=== PATIENT | female | born 1990 | race Caucasian/White ===

== ENCOUNTER 2016-09-06 11:59 | Emergency (ER) | payer MEDICAID ==
[2016-09-06] MEDS ORDERED: IBUPROFEN 800 MG TABLET PO STA (15:38)
[2016-09-06] MEDS ORDERED: IBUPROFEN 800 MG TABLET PO ONE (15:40)
== END 2016-09-06 15:44 | disposition home or self-care (01) ==
DX: M79.601 Pain in right arm (principal); W23.0XXA Caught, crushed, jammed, or pinched between moving objects, initial encounter; E28.2 Polycystic ovarian syndrome; J45.909 Unspecified asthma, uncomplicated; F17.200 Nicotine dependence, unspecified, uncomplicated; R03.0 Elevated blood-pressure reading, without diagnosis of hypertension
CPT/HCPCS: 73090; 81025; 99283; 99284; A9270

== ENCOUNTER 2017-05-09 15:41 | Outpatient (CLI) | payer MEDICAID ==
--- NOTE | 2017-05-10 01:27 | XRAY Report ---
EXAM: LUMBOSACRAL SPINE RADIOGRAPHY EXAM DATE: 05/09/2017 04:21 PM. CLINICAL HISTORY: LUMBAGO. COMPARISONS: None. TECHNIQUE: 3 views. FINDINGS: Alignment: Normal. No spondylolisthesis or scoliosis. Bones: No fractures or bone lesions. Degenerative changes: Mild L4-L5 and L5-S1 disk height loss. Soft Tissues: Normal. The visualized bowel gas pattern is normal. IMPRESSION: 1. No acute abnormality seen in the lumbar spine. 2. Mild L4-L5 and L5-S1 disk height loss. [facility] Referring Provider Line: [phone] SITE ID: [id number]
== END 2017-05-09 15:42 | disposition home or self-care (01) ==
LOC: DI.N 15:41
PROVIDERS: ATTEND Family Medicine
DX: M51.36 Other intervertebral disc degeneration, lumbar region (principal)
CPT/HCPCS: 72100

== ENCOUNTER 2017-10-09 08:00 | Outpatient (CLI) | payer MEDICAID ==
[2017-10-09 19:09] LABS: BASOPHILS % (AUTO) 0.6 %; EOSINOPHILS # (AUTO) 0.1 10^3/uL (0.0-0.7); EOSINOPHILS % (AUTO) 2.3 %; HGB - HEMOGLOBIN 12.9 g/dL (12.0-16.0); LYMPHOCYTES # (AUTO) 2.1 10^3/uL (1.5-3.5); MEAN CORPUSCULAR HEMOGLOBIN 30.1 pg (27.0-31.0); MEAN CORPUSCULAR HGB CONC 33.4 g/dL (32.0-36.0); MEAN CORPUSCULAR VOLUME 90.3 fL (81.0-99.0); MEAN PLATELET VOLUME 10.2 fL (7.9-10.8); MONOCYTES # (AUTO) 0.3 10^3/uL (0.0-1.0); MONOCYTES % (AUTO) 4.6 %; NEUTROPHILS # (AUTO) 3.4 10^3/uL (1.5-6.6); NEUTROPHILS % (AUTO) 57.5 %; PLT - PLATELET COUNT 246 10^3/uL (130-450); RED BLOOD COUNT 4.28 10^6/uL (4.20-5.40); WHITE BLOOD COUNT 5.9 x10^3/uL (4.8-10.8)
[2017-10-09 19:19] LABS: ALBUMIN 4.4 g/dL (3.2-5.5); ALBUMIN/GLOBULIN RATIO 1.3 (1.0-2.2); ALKALINE PHOSPHATASE 81 IU/L (42-121); ALT ALANINE AMINOTRANSFERASE 39 IU/L (10-60); AST ASPARTATE AMINOTRANSFERASE 45 IU/L (10-42); BUN - BLOOD UREA NITROGEN 11 mg/dL (6-20); CALCIUM 9.3 mg/dL (8.5-10.3); CARBON DIOXIDE - CO2 23 mmol/L (21-32); CHLORIDE 106 mmol/L (101-111); CHOL/HDL RATIO 6.6 (<4.4); CHOLESTEROL 265 mg/dL; CREATININE 0.7 mg/dL (0.4-1.0); GFR - MDRD 101 (>89); GLUCOSE 100 mg/dL (70-100); HDL CHOLESTEROL 40 mg/dL; LDL CHOLESTEROL,CALCULATED 196 mg/dL; LDL/HDL RATIO 4.9 (<4.4); SODIUM 137 mmol/L (135-145); TOTAL PROTEIN 7.9 g/dL (6.7-8.2); URIC ACID 6.8 mg/dL (2.6-7.2); VLDL CHOLESTEROL 29 mg/dL
[2017-10-09 20:39] LABS: RHEUMATOID FACTOR NEGATIVE (Negative)
[2017-10-11 13:31] LABS: ANA SCREEN NEGATIVE (NEGATIVE)
== END 2017-10-09 08:01 | disposition home or self-care (01) ==
LOC: LAB.N 08:00
PROVIDERS: ATTEND Family Medicine
DX: M19.90 Unspecified osteoarthritis, unspecified site (principal); Z83.2 Family history of diseases of the blood and blood-forming organs and certain disorders involving the immune mechanism; E66.9 Obesity, unspecified
CPT/HCPCS: 36415; 80053; 80061; 83721; 84443; 84550; 85025; 85651; 86038; 86140; 86200; 86430

== ENCOUNTER 2018-04-15 23:35 | Emergency (ER) | payer MEDICAID ==
--- NOTE | 2018-04-15 23:52 | ED Physician Documentation ---
PD HPI UPPER EXT INJURY - Stated complaint Stated Complaint: L ARM PX - Chief complaint Chief Complaint: General - History obtained from History obtained from: Patient - History of Present Illness Location: Left, Forearm, Wrist Type of injury: Blunt / blow Where injury occurred: Home Timing - onset: How many hours ago (1) Timing - details: Abrupt onset Pain level now: 7 Improved by: Rest Worsened by: Moving, Palpating Associated symptoms: Swelling. 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 Psych: ADD/ADHD Other Past Medical History: POC - Past Surgical History Past Surgical History: Yes - Present Medications Home Medications: Ambulatory Orders Medication Instructions Recorded Confirmed Cetirizine [ZyrTEC] 04/15/18 04/15/18 Doxepin HCl 25 mg PO 04/15/18 Venlafaxine [Effexor] 04/15/18 04/15/18 Hydrocodone/Acetaminophen 1 - 2 each PO Q6HR PRN #14 tablet 04/16/18 [Hydrocodon-Acetaminophen 5-325] - Allergies Allergies/Adverse Reactions: Allergies Allergy/AdvReac Type Severity Reaction Status Date / Time prazosin [From Minipress] AdvReac Dizziness Verified 04/15/18 23:42 - Social History Does the pt smoke?: Yes Smoking Status: Former smoker Does the pt drink ETOH?: No Does the pt have substance abuse?: No - Immunizations Immunizations are current?: Yes - POLST Patient has POLST: No PD ED PE NORMAL - Vitals Vital signs reviewed: Yes - General General: Alert and oriented X 3, No acute distress, Well developed/nourished - Derm Derm: Normal color, Warm and dry - Neuro Neuro: No motor deficit, No sensory deficit PD ED PE EXPANDED - Extremities Extremities: Tenderness, Limited ROM, Swelling, Left forearm (distal forearm, dorsal surface) Results - Vitals Vitals: Vital Signs - 24 hr 04/16/18 01:03 Temperature 36.6 C Heart Rate 89 Respiratory 16 Rate Blood Pressure 136/74 H O2 Saturation 99 Oxygen O2 Source Room air - Rads (name of study) left FA xrays Radiology: Prelim report reviewed, See rad report PD MEDICAL DECISION MAKING - ED course Complexity details: reviewed results, re-evaluated patient, considered differential, d/w patient Departure - Departure Disposition: 01 Home, Self Care Clinical Impression: Left wrist sprain Condition: Good Instructions: ED Sling, ED Splint Care Fiberglass, ED Sprain Wrist Follow-Up: Davi Nicholson MD [Primary Care Provider] - (4-5 days if not improving) Prescriptions: Hydrocodone/Acetaminophen [Hydrocodon-Acetaminophen 5-325] 1 - 2 each PO Q6HR PRN #14 tablet PRN Reason: Pain Discharge Date/Time: 04/16/18 01:03
--- NOTE | 2018-04-16 00:41 | XRAY Report ---
Reason: Trauma Procedure Date: 04/16/2018 Accession Number: [id number] / [id number] Procedure: XR - Forearm LT CPT Code: FULL RESULT: EXAM: LEFT FOREARM RADIOGRAPHY EXAM DATE: 04/16/2018 12:03 AM. CLINICAL HISTORY: Pain after injury. COMPARISON: None. TECHNIQUE: 2 views. FINDINGS: Bones: No fracture seen. Joints: No dislocation. Joint spaces appear intact. Soft Tissues: Soft tissue swelling. IMPRESSION: 1. No acute osseous abnormality seen. [facility]
[2018-04-16] MEDS ORDERED: HYDROcod/ACET 5/325 Prepack 4 PO STA (00:46)
[2018-04-16 01:04] VITALS: BP 136/74
== END 2018-04-16 01:03 | disposition home or self-care (01) ==
LOC: ED 23:35
DX: Z87.891 Personal history of nicotine dependence (principal); S63.502A Unspecified sprain of left wrist, initial encounter; W22.09XA Striking against other stationary object, initial encounter; Y92.009 Unspecified place in unspecified non-institutional (private) residence as the place of occurrence of the external cause
CPT/HCPCS: 99283

== ENCOUNTER 2018-04-23 10:43 | Outpatient (CLI) | payer MEDICAID ==
--- NOTE | 2018-04-23 11:58 | XRAY Report ---
Reason: FOREARM PAIN, LEFT Procedure Date: 04/23/2018 Accession Number: [id number] / [id number] Procedure: XR - Forearm LT CPT Code: FULL RESULT: EXAM: LEFT FOREARM RADIOGRAPHY EXAM DATE: 04/23/2018 11:11 AM. CLINICAL HISTORY: Forearm pain, left. COMPARISON: FOREARM LT 04/16/2018 12:03 AM. TECHNIQUE: 2 views. FINDINGS: Bones: Normal. No fractures or bone lesions. Joints: Normal. No effusions or subluxations in the visualized wrist or elbow joints. Soft Tissues: Normal. No soft tissue swelling. IMPRESSION: No fracture or dislocation. [facility]
--- NOTE | 2018-04-23 11:58 | XRAY Report ---
Reason: FOREARM PAIN, LEFT, PAIN IN LEFT WRIST Procedure Date: 04/23/2018 Accession Number: [id number] / [id number] Procedure: XR - Wrist 3 View LT CPT Code: FULL RESULT: EXAM: LEFT WRIST RADIOGRAPHY EXAM DATE: 04/23/2018 11:11 AM. CLINICAL HISTORY: Forearm pain, left, pain in left wrist. COMPARISON: None. TECHNIQUE: 3 views. FINDINGS: Bones: Normal. No fractures or bone lesions. Joints: Normal. No subluxations. Soft Tissues: Normal. No soft tissue swelling. IMPRESSION: Normal wrist radiography. [facility]
== END 2018-04-23 10:44 | disposition home or self-care (01) ==
LOC: DI 10:43
PROVIDERS: ATTEND Family Medicine
DX: M79.632 Pain in left forearm (principal); M25.532 Pain in left wrist

== ENCOUNTER 2018-10-07 08:00 | Outpatient (CLI) | payer MEDICAID ==
[2018-10-07 19:45] LABS: HB2 TOTAL 14.1 g/dL; HEMOGLOBIN A1C 0.49 g/dL; HEMOGLOBIN A1C % 5.3 % (4.6-6.2)
[2018-10-07 20:27] LABS: CHOL/HDL RATIO 6.3 (<4.4); CHOLESTEROL 258 mg/dL; HDL CHOLESTEROL 41 mg/dL; LDL CHOLESTEROL,CALCULATED 177 mg/dL; LDL/HDL RATIO 4.3 (<4.4); VLDL CHOLESTEROL 40 mg/dL
== END 2018-10-07 23:59 | disposition home or self-care (01) ==
LOC: LAB.N 08:00
PROVIDERS: ATTEND Registered Nurse
DX: F33.9 Major depressive disorder, recurrent, unspecified (principal); Z79.899 Other long term (current) drug therapy
CPT/HCPCS: 36415; 80061; 83036; 83721

== ENCOUNTER 2019-01-16 11:00 | Emergency (ER) | payer MEDICAID ==
[2019-01-16 11:16] VITALS: BP 149/109
[2019-01-16] MEDS ORDERED: hydrOXYzine PAMOATE 25 MG CAPSULE PO STA (12:08)
[2019-01-16] MEDS ORDERED: predniSONE 20 MG TABLET PO STA (12:08)
--- NOTE | 2019-01-16 12:12 | ED Physician Documentation ---
PD HPI SKIN - Stated complaint Stated Complaint: RASH ON ARMS/NECK - Chief complaint Chief Complaint: Wound - History obtained from History obtained from: Patient - History of Present Illness Timing - onset: How many weeks ago (1) Timing - duration: Weeks (1) Timing - details: Gradual onset Pain level max: 5 Pain level now: 5 Location: Bodywide Quality / character: Itchy Improved by: Other (took benadry without relief) Worsened by (comment): COMMENT (nothing) Associated symptoms: No: Fever, Myalgias, Joint pain, Headache, Facial swelling, Dyspnea, Abd pain, N/V/D, Urinary sx Contributing factors: Unknown. 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 Psych: Depression, Anxiety, ADD/ADHD - Past Surgical History Past Surgical History: Yes - Present Medications Home Medications: Ambulatory Orders Medication Instructions Recorded Confirmed Cetirizine [ZyrTEC] 04/15/18 04/15/18 Doxepin HCl 25 mg PO 04/15/18 Venlafaxine [Effexor] 04/15/18 04/15/18 Hydrocodone/Acetaminophen 1 - 2 each PO Q6HR PRN #14 tablet 04/16/18 [Hydrocodon-Acetaminophen 5-325] hydrOXYzine HCl [Hydroxyzine HCl] 50 mg PO Q6H PRN #20 tablet 01/16/19 predniSONE [Deltasone] 10 mg PO [id number] #42 tab 01/16/19 - Allergies Allergies/Adverse Reactions: Allergies Allergy/AdvReac Type Severity Reaction Status Date / Time prazosin [From Minipress] AdvReac Dizziness Verified 04/15/18 23:42 - Social History Does the pt smoke?: No Smoking Status: Former smoker Does the pt drink ETOH?: Yes Does the pt have substance abuse?: No - Immunizations Immunizations are current?: Yes - POLST Patient has POLST: No PD ED PE NORMAL - Vitals Vital signs reviewed: Yes - General General: Alert and oriented X 3, No acute distress, Well developed/nourished - HEENT HEENT: Moist mucous membranes - Neck Neck: Supple, no meningeal sign - Cardiac Cardiac: RRR - Respiratory Respiratory: No respiratory distress, Clear bilaterally - Derm Derm: Warm and dry, Other (Diffuse macular exanthem over the face, upper arms and chest. Blanches easily. No vesicles or pustules.) - Neuro Neuro: Alert and oriented X 3 - Psych Psych: Normal mood, Normal affect Results - Vitals Vitals: Vital Signs - 24 hr 01/16/19 11:14 Temperature 36.8 C Heart Rate 84 Respiratory 18 Rate Blood Pressure 149/109 H O2 Saturation 97 Oxygen O2 Source Room air PD MEDICAL DECISION MAKING - ED course Complexity details: considered differential, d/w patient ED course: 28-year-old female with a rash of unclear etiology. Will trial on oral steroids and hydroxyzine. Patient counseled regarding signs and symptoms for which I believe and urgent re-evaluation would be necessary. Patient with good understanding of and agreement to plan and is comfortable going home at this time This document was made in part using voice recognition software. While efforts are made to proofread this document, sound alike and grammatical errors may occur. Departure - Departure Disposition: 01 Home, Self Care Clinical Impression: Dermatitis Condition: Good Instructions: ED Dermatitis Non Specific Rash Follow-Up: Henry Dahl PA-C [Primary Care Provider] - Within 1 week Prescriptions: hydrOXYzine HCl [Hydroxyzine HCl] 50 mg PO Q6H PRN #20 tablet PRN Reason: Itching predniSONE [Deltasone] 10 mg PO [id number] #42 tab Comments: The cause of your symptoms is unclear. Follow-up with your doctor for further care. Discharge Date/Time: 01/16/19 12:17
== END 2019-01-16 12:17 | disposition home or self-care (01) ==
LOC: ED 11:00
DX: L30.9 Dermatitis, unspecified (principal); Z87.891 Personal history of nicotine dependence
CPT/HCPCS: 99282; 99284; A9270; J7512

== ENCOUNTER 2020-01-07 10:20 | Outpatient (CLI) | payer MEDICAID | END 2020-01-07 10:21 | disposition home or self-care (01) | LOC: COV 10:20 | PROVIDERS: ATTEND Family Medicine | DX: R06.02 Shortness of breath (principal); Z20.828 Contact with and (suspected) exposure to other viral communicable diseases ==

== ENCOUNTER 2020-02-25 08:58 | Outpatient (CLI) | payer MEDICAID ==
[2020-02-25 13:09] LABS: BASOPHILS % (AUTO) 0.3 %; EOSINOPHILS # (AUTO) 0.1 10^3/uL (0.0-0.7); EOSINOPHILS % (AUTO) 2.3 %; HGB - HEMOGLOBIN 13.3 g/dL (12.0-16.0); LYMPHOCYTES # (AUTO) 2.4 10^3/uL (1.5-3.5); MEAN CORPUSCULAR HEMOGLOBIN 30.2 pg (27.0-31.0); MEAN CORPUSCULAR HGB CONC 32.4 g/dL (32.0-36.0); MEAN PLATELET VOLUME 12.8 fL (7.9-10.8); MONOCYTES # (AUTO) 0.4 10^3/uL (0.0-1.0); MONOCYTES % (AUTO) 5.8 %; NEUTROPHILS # (AUTO) 3.2 10^3/uL (1.5-6.6); NEUTROPHILS % (AUTO) 52.3 %; PLT - PLATELET COUNT 251 10^3/uL (130-450); RED BLOOD COUNT 4.41 10^6/uL (4.20-5.40); RED CELL DISTRIBUTION WIDTH 12.6 % (12.0-15.0); WHITE BLOOD COUNT 6.2 x10^3/uL (4.8-10.8)
[2020-02-25 13:17] LABS: HEMOGLOBIN A1c% 5.3 % (4.27-6.07)
[2020-02-25 13:52] LABS: HCG,QUALITATIVE BLOOD NEGATIVE
[2020-02-25 14:56] LABS: ALBUMIN 4.1 g/dL (3.2-5.5); ALBUMIN/GLOBULIN RATIO 1.6 (1.0-2.2); ALKALINE PHOSPHATASE 53 IU/L (42-121); ALT ALANINE AMINOTRANSFERASE 20 IU/L (10-60); AST ASPARTATE AMINOTRANSFERASE 20 IU/L (10-42); BILIRUBIN,TOTAL 0.6 mg/dL (0.2-1.0); BUN - BLOOD UREA NITROGEN 13 mg/dL (6-20); CALCIUM 9.5 mg/dL (8.5-10.3); CARBON DIOXIDE - CO2 26 mmol/L (21-32); CHLORIDE 103 mmol/L (101-111); CHOLESTEROL 189 mg/dL; CREATININE 0.9 mg/dL (0.4-1.0); GLUCOSE 94 mg/dL (70-100); HDL CHOLESTEROL 94 mg/dL; LDL CHOLESTEROL,CALCULATED 83 mg/dL; LDL/HDL RATIO 0.9 (<4.4); SODIUM 138 mmol/L (135-145); TOTAL PROTEIN 6.7 g/dL (6.7-8.2); VLDL CHOLESTEROL 12 mg/dL
== END 2020-02-25 23:59 | disposition home or self-care (01) ==
LOC: LAB.WCP 08:58
PROVIDERS: ATTEND Physician Assistant
DX: Z00.00 Encounter for general adult medical examination without abnormal findings (principal); E28.2 Polycystic ovarian syndrome
CPT/HCPCS: 36415; 80053; 80061; 83036; 83721; 84443; 84703; 85025

== ENCOUNTER 2020-03-15 08:40 | Outpatient (CLI) | payer MEDICAID ==
[2020-03-15 11:46] LABS: BASOPHILS % (AUTO) 0.4 %; EOSINOPHILS # (AUTO) 0.1 10^3/uL (0.0-0.7); EOSINOPHILS % (AUTO) 2.3 %; HGB - HEMOGLOBIN 9.7 g/dL (12.0-16.0); LYMPHOCYTES # (AUTO) 2.1 10^3/uL (1.5-3.5); MEAN CORPUSCULAR HEMOGLOBIN 30.7 pg (27.0-31.0); MEAN CORPUSCULAR HGB CONC 31.8 g/dL (32.0-36.0); MEAN CORPUSCULAR VOLUME 96.5 fL (81.0-99.0); MEAN PLATELET VOLUME 11.9 fL (7.9-10.8); MONOCYTES # (AUTO) 0.3 10^3/uL (0.0-1.0); MONOCYTES % (AUTO) 5.8 %; NEUTROPHILS % (AUTO) 53.3 %; PLT - PLATELET COUNT 260 10^3/uL (130-450); RED BLOOD COUNT 3.16 10^6/uL (4.20-5.40); RED CELL DISTRIBUTION WIDTH 13.1 % (12.0-15.0); WHITE BLOOD COUNT 5.6 x10^3/uL (4.8-10.8)
[2020-03-15 12:27] LABS: FOLLICLE STIMULATING HORMONE 4.44 mIU/mL
[2020-03-15 12:28] LABS: LUTEINIZING HORMONE 12.03 mIU/mL
[2020-03-15 16:58] LABS: HCG,QUALITATIVE BLOOD NEGATIVE
[2020-03-16 07:26] LABS: ESTRADIOL 46 pg/mL; PROGESTERONE <0.5 ng/mL
== END 2020-03-15 08:41 | disposition home or self-care (01) ==
LOC: LAB.WCP 08:40
PROVIDERS: ATTEND Nurse Practitioner Family
DX: N92.0 Excessive and frequent menstruation with regular cycle (principal)
CPT/HCPCS: 36415; 82670; 83001; 83002; 84144; 84703; 85025

== ENCOUNTER 2020-03-17 18:49 | Outpatient (CLI) | payer MEDICAID ==
--- NOTE | 2020-03-17 21:37 | Ultrasound Report ---
PROCEDURE: Pelvic w/Transvaginal INDICATIONS: MENORRHAGIA TECHNIQUE: Real-time scanning was performed of the pelvic organs, with image documentation. Additional endovagi nal scanning was necessary due to incomplete visualization of the adnexal and endometrial structures by transabdominal scanning. COMPARISON: None. FINDINGS: Transabdominal scanning: Limited scanning through the kidneys shows no hydronephrosis. No pathologi c free abdominal or pelvic fluid. Endovaginal scanning: Uterus: Uterus is anteverted, normal in size at 8.2 x 4.5 x 3.4 cm. The endometrium measures 6 mm i n combined thickness. Ovaries: The right ovary measures 2.5 x 1.9 x 3.3 cm. The left ovary measures 2.3 x 2.4 x 2.0 cm. No rmal Doppler appearance. IMPRESSION: Normal appearance of the uterus and endometrium. No abnormality of the ovaries or adnexa. Reviewed by: Abelardo Caraballo on 03/17/2020 8:36 PM JAVIER Approved by: Abelardo Caraballo on 03/17/2020 8:36 PM JAVIER Station ID: [id number]
== END 2020-03-17 18:50 | disposition home or self-care (01) ==
LOC: DI 18:49
PROVIDERS: ATTEND Nurse Practitioner Family
DX: N92.0 Excessive and frequent menstruation with regular cycle (principal)
CPT/HCPCS: 76830; 76856

== ENCOUNTER 2020-03-25 13:21 | Emergency (ER) | payer MEDICAID ==
--- NOTE | 2020-03-25 13:41 | ED Physician Documentation ---
History of Present Illness - Stated complaint Stated Complaint: DIZZY/HEAD PX - Chief complaint Chief Complaint: Neuro - History obtained from History obtained from: Patient - Additonal information Additional information: For about 5 weeks she had heavy continuous vaginal bleeding going through about 2 pads an hour. She was on Provera which was not helpful but subsequently got Depo-Provera yesterday which is stanch the bleeding white a bit from 2 pads an hour just to 2 pads in the last 24 hours. However over the last 3 days she has had progressive lightheadedness, shortness of breath and fatigue. There is no associated chest pain, no cough, no pedal edema or calf pain. Records were reviewed, she did have a fair drop in her H&H, from prior records it looks like her baseline hemoglobin is right around 13, she had it done on 15 March and it was 9.7. Review of Systems Constitutional: reports: Fatigue. denies: Fever, Chills Cardiac: reports: Palpitations (with exertion). denies: Chest pain / pressure Respiratory: reports: Dyspnea. 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 Psych: Depression, Anxiety, ADD/ADHD Other Past Medical History: PCOS - Past Surgical History Past Surgical History: Yes - Present Medications Home Medications: Ambulatory Orders Medication Instructions Recorded Confirmed Cetirizine [ZyrTEC] 04/15/18 04/15/18 Doxepin HCl 25 mg PO 04/15/18 Venlafaxine [Effexor] 04/15/18 04/15/18 Hydrocodone/Acetaminophen 1 - 2 each PO Q6HR PRN #14 tablet 04/16/18 [Hydrocodon-Acetaminophen 5-325] hydrOXYzine HCL [Hydroxyzine HCl] 50 mg PO Q6H PRN #20 tablet 01/16/19 predniSONE [Deltasone] 10 mg PO [id number] #42 tab 01/16/19 - Allergies Allergies/Adverse Reactions: Allergies Allergy/AdvReac Type Severity Reaction Status Date / Time prazosin [From Minipress] AdvReac Dizziness Verified 04/15/18 23:42 - Social History Does the pt smoke?: No Smoking Status: Never smoker Does the pt drink ETOH?: Yes Does the pt have substance abuse?: No - Immunizations Immunizations are current?: Yes - POLST Patient has POLST: No PD ED PE NORMAL - Vitals Vital signs reviewed: Yes - General General: Alert and oriented X 3, No acute distress - HEENT HEENT: Other (Pale conjunctiva) - Cardiac Cardiac: RRR, No murmur - Respiratory Respiratory: No respiratory distress, Clear bilaterally - Abdomen Abdomen: Non tender - Derm Derm: No rash - Neuro Neuro: Alert and oriented X 3, Normal speech Results - Vitals Vitals: Vital Signs - 24 hr 03/25/20 03/25/20 03/25/20 13:25 13:36 14:52 Temperature 37.0 C 37 C 37.1 C Heart Rate 83 83 83 Respiratory 20 20 22 Rate Blood Pressure 160/88 H 160/88 H 127/75 O2 Saturation 99 99 03/25/20 03/25/20 03/25/20 15:08 15:10 15:24 Temperature 36.9 C 36.9 C 36.9 C Heart Rate 87 88 76 Respiratory 22 22 22 Rate Blood Pressure 104/67 110/56 L 112/56 L O2 Saturation 100 100 03/25/20 15:38 Temperature 37.0 C Heart Rate 82 Respiratory 21 Rate Blood Pressure 129/78 O2 Saturation Oxygen O2 Source Room air - Labs Labs: Laboratory Tests 03/25/20 03/25/20 03/25/20 13:45 13:48 13:48 WBC 7.0 RBC 2.25 L Hgb 6.7 L* Hct 21.6 L MCV 96.0 MCH 29.8 MCHC 31.0 L RDW 13.3 Plt Count 282 MPV 10.6 Neut # (Auto) 3.9 Lymph # (Auto) 2.5 [place] # (Auto) 0.5 Eos # (Auto) 0.1 Baso # (Auto) 0.0 Absolute Nucleated RBC 0.00 Nucleated RBC % 0.0 Sodium 140 Potassium 3.5 Chloride 111 Carbon Dioxide 23 Anion Gap 6.0 BUN 7 Creatinine 0.6 Estimated GFR (MDRD) 119 Glucose 109 H Calcium 8.8 Total Bilirubin 0.6 AST 56 H ALT 48 Alkaline Phosphatase 69 Total Protein 7.1 Albumin 3.9 Globulin 3.2 Albumin/Globulin Ratio 1.2 Lipase 29 Serum HCG, Qual Blood Type O POSITIVE Blood Type Recheck Antibody Screen NEGATIVE Crossmatch IS Only See Detail 03/25/20 03/25/20 13:48 14:21 WBC RBC Hgb Hct MCV MCH MCHC RDW Plt Count MPV Neut # (Auto) Lymph # (Auto) [place] # (Auto) Eos # (Auto) Baso # (Auto) Absolute Nucleated RBC Nucleated RBC % Sodium Potassium Chloride Carbon Dioxide Anion Gap BUN Creatinine Estimated GFR (MDRD) Glucose Calcium Total Bilirubin AST ALT Alkaline Phosphatase Total Protein Albumin Globulin Albumin/Globulin Ratio Lipase Serum HCG, Qual NEGATIVE Blood Type Blood Type Recheck O POSITIVE Antibody Screen Crossmatch IS Only PD MEDICAL DECISION MAKING - ED course ED course: 29-year-old woman presents with dizziness and fatigue and shortness of breath. Recently dropping H&H and today it was checked and she has now passed to the transfusion threshold and is administered 1 unit of packed red blood cells. The source of her bleeding was gynecologic, she had a recent negative ultrasound and the bleeding has already pretty much stopped after starting Depo-Provera yesterday. Departure - Departure Disposition: 01 Home, Self Care Clinical Impression: Acute blood loss anemia Menorrhagia Qualifiers: Menorrhagia type: premenopausal Qualified Code(s): N92.4 - Excessive bleeding in the premenopausal period Condition: Good Instructions: ED Anemia Iron Deficiency Follow-Up: [facility] [Provider Group] Comments: Return if your bleeding worsens or you start to feel worse again. Follow-up with your doctor at the end of the week for recheck, suggest repeat labs at that point to re-see how your blood counts are doing. Continue the iron supplementation.
[2020-03-25 13:58] LABS: BASOPHILS % (AUTO) 0.3 %; EOSINOPHILS # (AUTO) 0.1 10^3/uL (0.0-0.7); EOSINOPHILS % (AUTO) 1.7 %; LYMPHOCYTES # (AUTO) 2.5 10^3/uL (1.5-3.5); MEAN CORPUSCULAR HEMOGLOBIN 29.8 pg (27.0-31.0); MEAN PLATELET VOLUME 10.6 fL (7.9-10.8); MONOCYTES # (AUTO) 0.5 10^3/uL (0.0-1.0); NEUTROPHILS # (AUTO) 3.9 10^3/uL (1.5-6.6); NEUTROPHILS % (AUTO) 55.1 %; PLT - PLATELET COUNT 282 10^3/uL (130-450); RED BLOOD COUNT 2.25 10^6/uL (4.20-5.40); RED CELL DISTRIBUTION WIDTH 13.3 % (12.0-15.0)
[2020-03-25 14:03] LABS: HGB - HEMOGLOBIN 6.7 g/dL (12.0-16.0)
[2020-03-25 14:06] LABS: ALBUMIN 3.9 g/dL (3.2-5.5); ALBUMIN/GLOBULIN RATIO 1.2 (1.0-2.2); BILIRUBIN,TOTAL 0.6 mg/dL (0.2-1.0); CALCIUM 8.8 mg/dL (8.5-10.3); CREATININE 0.6 mg/dL (0.4-1.0); TOTAL PROTEIN 7.1 g/dL (6.7-8.2)
[2020-03-25 14:15] LABS: HCG,QUALITATIVE BLOOD NEGATIVE
[2020-03-25 17:09] VITALS: BP 108/59
== END 2020-03-25 17:17 | disposition home or self-care (01) ==
LOC: ED 13:21
DX: D62 Acute posthemorrhagic anemia (principal); N92.4 Excessive bleeding in the premenopausal period
CPT/HCPCS: 36415; 36430; 80053; 83690; 84703; 85025; 86850; 86900; 86901; 86920; 99284; 99285; P9016

== ENCOUNTER 2020-04-04 10:10 | Outpatient (CLI) | payer MEDICAID ==
[2020-04-04 12:30] LABS: BASOPHILS % (AUTO) 0.3 %; EOSINOPHILS # (AUTO) 0.1 10^3/uL (0.0-0.7); EOSINOPHILS % (AUTO) 1.8 %; HGB - HEMOGLOBIN 8.5 g/dL (12.0-16.0); LYMPHOCYTES # (AUTO) 2.2 10^3/uL (1.5-3.5); LYMPHOCYTES % (AUTO) 33.2 %; MEAN CORPUSCULAR HEMOGLOBIN 28.8 pg (27.0-31.0); MEAN CORPUSCULAR HGB CONC 29.9 g/dL (32.0-36.0); MEAN CORPUSCULAR VOLUME 96.3 fL (81.0-99.0); MONOCYTES # (AUTO) 0.3 10^3/uL (0.0-1.0); MONOCYTES % (AUTO) 5.2 %; NEUTROPHILS # (AUTO) 3.9 10^3/uL (1.5-6.6); NEUTROPHILS % (AUTO) 59.2 %; PLT - PLATELET COUNT 280 10^3/uL (130-450); RED BLOOD COUNT 2.95 10^6/uL (4.20-5.40); RED CELL DISTRIBUTION WIDTH 14.9 % (12.0-15.0); WHITE BLOOD COUNT 6.6 x10^3/uL (4.8-10.8)
== END 2020-04-04 23:59 | disposition home or self-care (01) ==
LOC: LAB.WCP 10:10
PROVIDERS: ATTEND Nurse Practitioner Obstetrics & Gynecology
DX: N92.0 Excessive and frequent menstruation with regular cycle (principal)
CPT/HCPCS: 36415; 85025

== ENCOUNTER 2020-05-01 12:32 | Emergency (ER) | payer MEDICAID ==
[2020-05-01 13:17] LABS: BASOPHILS % (AUTO) 0.2 %; EOSINOPHILS # (AUTO) 0.2 10^3/uL (0.0-0.7); EOSINOPHILS % (AUTO) 2.2 %; LYMPHOCYTES # (AUTO) 2.7 10^3/uL (1.5-3.5); LYMPHOCYTES % (AUTO) 32.3 %; MEAN CORPUSCULAR HEMOGLOBIN 28.7 pg (27.0-31.0); MEAN CORPUSCULAR HGB CONC 31.7 g/dL (32.0-36.0); MEAN CORPUSCULAR VOLUME 90.7 fL (81.0-99.0); MEAN PLATELET VOLUME 11.1 fL (7.9-10.8); MONOCYTES # (AUTO) 0.5 10^3/uL (0.0-1.0); NEUTROPHILS # (AUTO) 4.9 10^3/uL (1.5-6.6); NEUTROPHILS % (AUTO) 59.1 %; PLT - PLATELET COUNT 311 10^3/uL (130-450); RED BLOOD COUNT 4.18 10^6/uL (4.20-5.40); RED CELL DISTRIBUTION WIDTH 13.3 % (12.0-15.0); WHITE BLOOD COUNT 8.3 x10^3/uL (4.8-10.8)
[2020-05-01 13:33] LABS: BILIRUBIN,TOTAL 0.5 mg/dL (0.2-1.0); CALCIUM 9.6 mg/dL (8.5-10.3); CREATININE 0.6 mg/dL (0.4-1.0); TOTAL PROTEIN 7.9 g/dL (6.7-8.2)
--- NOTE | 2020-05-01 14:04 | ED Physician Documentation ---
History of Present Illness - Stated complaint Stated Complaint: FEMALE ,DIZZY, SOA - Chief complaint Chief Complaint: General - History obtained from History obtained from: Patient - Additonal information Additional information: 29-year-old woman with history of PCOS and ongoing vaginal bleeding necessitating transfusions and iron infusions. She had an iron infusion on Friday and over the weekend felt short of breath dizzy and fatigued. There is no associated chest pain or pedal edema or calf pain. No history of DVT or PE. Review of Systems Constitutional: reports: Fatigue. denies: Fever, Chills Cardiac: denies: Chest pain / pressure, Palpitations Respiratory: reports: Dyspnea. 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 Psych: Depression, Anxiety, ADD/ADHD - Past Surgical History Past Surgical History: Yes - Present Medications Home Medications: Ambulatory Orders Medication Instructions Recorded Confirmed Cetirizine [ZyrTEC] 04/15/18 04/15/18 Doxepin HCl 25 mg PO 04/15/18 Venlafaxine [Effexor] 04/15/18 04/15/18 Hydrocodone/Acetaminophen 1 - 2 each PO Q6HR PRN #14 tablet 04/16/18 [Hydrocodon-Acetaminophen 5-325] hydrOXYzine HCL [Hydroxyzine HCl] 50 mg PO Q6H PRN #20 tablet 01/16/19 predniSONE [Deltasone] 10 mg PO [id number] #42 tab 01/16/19 - Allergies Allergies/Adverse Reactions: Allergies Allergy/AdvReac Type Severity Reaction Status Date / Time prazosin [From Minipress] AdvReac Dizziness Verified 05/01/20 12:58 - Social History Does the pt smoke?: No Smoking Status: Never smoker Does the pt drink ETOH?: Yes Does the pt have substance abuse?: No - Immunizations Immunizations are current?: Yes - POLST Patient has POLST: No PD ED PE NORMAL - Vitals Vital signs reviewed: Yes - General General: Alert and oriented X 3, Other (Appears breathless) - HEENT HEENT: PERRL, EOMI - Neck Neck: Supple, no meningeal sign, No bony TTP - Cardiac Cardiac: RRR, No murmur - Respiratory Respiratory: No respiratory distress, Clear bilaterally - Abdomen Abdomen: Normal bowel sounds, Soft, Non tender - Back Back: No CVA TTP, No spinal TTP - Derm Derm: Normal color, Warm and dry - Neuro Neuro: Alert and oriented X 3, No motor deficit, No sensory deficit, Normal speech Results - Vitals Vitals: Vital Signs - 24 hr 05/01/20 05/01/20 12:55 15:07 Temperature 36.0 C L Heart Rate 61 61 Respiratory 16 20 Rate Blood Pressure 163/102 H 155/92 H O2 Saturation 99 100 Oxygen O2 Source Room air - EKG (time done) 1407 Rate: Rate (enter#) (70) Rhythm: NSR [place]: Normal Intervals: Normal IN QRS: Normal Ischemia: Normal ST segments - Labs Labs: Laboratory Tests 05/01/20 05/01/20 05/01/20 13:05 13:05 13:05 WBC 8.3 RBC 4.18 L Hgb 12.0 Hct 37.9 MCV 90.7 MCH 28.7 MCHC 31.7 L RDW 13.3 Plt Count 311 MPV 11.1 H Neut # (Auto) 4.9 Lymph # (Auto) 2.7 [place] # (Auto) 0.5 Eos # (Auto) 0.2 Baso # (Auto) 0.0 Absolute Nucleated RBC 0.00 Nucleated RBC % 0.0 D-Dimer Sodium 141 Potassium 3.7 Chloride 104 Carbon Dioxide 23 Anion Gap 14.0 H BUN 6 Creatinine 0.6 Estimated GFR (MDRD) 119 Glucose 112 H Calcium 9.6 Total Bilirubin 0.5 AST 42 ALT 40 Alkaline Phosphatase 84 Troponin I High Sens B-Natriuretic Peptide Total Protein 7.9 Albumin 4.0 Globulin 3.9 Albumin/Globulin Ratio 1.0 Lipase 25 Ur Specific [place] Urine HCG, Qual Blood Type O POSITIVE 05/01/20 05/01/20 05/01/20 13:05 13:05 13:05 WBC RBC Hgb Hct MCV MCH MCHC RDW Plt Count MPV Neut # (Auto) Lymph # (Auto) [place] # (Auto) Eos # (Auto) Baso # (Auto) Absolute Nucleated RBC Nucleated RBC % D-Dimer 220.6 Sodium Potassium Chloride Carbon Dioxide Anion Gap BUN Creatinine Estimated GFR (MDRD) Glucose Calcium Total Bilirubin AST ALT Alkaline Phosphatase Troponin I High Sens 2.4 B-Natriuretic Peptide 11 Total Protein Albumin Globulin Albumin/Globulin Ratio Lipase Ur Specific [place] Urine HCG, Qual Blood Type 05/01/20 14:20 WBC RBC Hgb Hct MCV MCH MCHC RDW Plt Count MPV Neut # (Auto) Lymph # (Auto) [place] # (Auto) Eos # (Auto) Baso # (Auto) Absolute Nucleated RBC Nucleated RBC % D-Dimer Sodium Potassium Chloride Carbon Dioxide Anion Gap BUN Creatinine Estimated GFR (MDRD) Glucose Calcium Total Bilirubin AST ALT Alkaline Phosphatase Troponin I High Sens B-Natriuretic Peptide Total Protein Albumin Globulin Albumin/Globulin Ratio Lipase Ur Specific [place] 1.020 Urine HCG, Qual NEGATIVE Blood Type PD MEDICAL DECISION MAKING - ED course ED course: 29-year-old woman with shortness of breath, presumed anemia from her recent history but her hemoglobin today is 12 which is the best it has been in quite some time, as such alternative diagnoses must be sought including but not limited to cardiomyopathy and DVT. Diagnostics showed no evidence of a serious cause of her shortness of breath, D- dimer and cardiac testing was negative as was her chest x-ray. The timing suggest that it may have been from the iron infusion although there is no other evidence of an allergic reaction or wheezing. Departure - Departure Disposition: 01 Home, Self Care Clinical Impression: Dyspnea Qualifiers: Dyspnea type: shortness of breath Qualified Code(s): R06.02 - Shortness of breath; R06.00 - Dyspnea, unspecified; R06.01 - Orthopnea Condition: Good Record reviewed to determine appropriate education?: Yes Instructions: ED Dyspnea Shortness of Breath Comments: We looked for serious cause of your shortness of breath today, thankfully there is no evidence of a heart issue or blood clot. Your chest x-ray looks okay. The timing suggest that this may be related to the iron infusion and care needs to be considered before having another one. Return if worsening.
--- NOTE | 2020-05-01 14:36 | XRAY Report ---
PROCEDURE: Chest 1 View X-Ray INDICATIONS: Dyspnea TECHNIQUE: One view of the chest was acquired. COMPARISON: 04/03/2016 chest radiograph FINDINGS: Surgical changes and devices: None. Lungs and pleura: No pleural effusions or pneumothorax. Lungs are clear. Mediastinum: Mediastinal contours appear normal. Heart size is normal. Bones and chest wall: No suspicious bony lesions. Overlying soft tissues appear unremarkable. IMPRESSION: Normal chest radiograph. Reviewed by: Nick Gutiérrez MD on 05/01/2020 2:35 PM PST Approved by: Nick Gutiérrez MD on 05/01/2020 2:35 PM PST Station ID: [id number]
[2020-05-01 15:07] VITALS: BP 155/92
[2020-05-01 15:08] LABS: HCG UR QUAL NEGATIVE
== END 2020-05-01 15:25 | disposition home or self-care (01) ==
LOC: ED 12:32
DX: R06.02 Shortness of breath (principal); R06.01 Orthopnea; E28.2 Polycystic ovarian syndrome
CPT/HCPCS: 36415; 71045; 80053; 81025; 83690; 83880; 84484; 85025; 85379; 86900; 86901; 93005; 99284

== ENCOUNTER 2020-05-04 16:16 | Outpatient (CLI) | payer MEDICAID ==
--- NOTE | 2020-05-05 13:57 | Ultrasound Report ---
PROCEDURE: Pelvic w/Transvaginal INDICATIONS: ABNORMAL VAGINAL BLEEDING TECHNIQUE: Real-time scanning was performed of the pelvic organs, with image documentation. Additional endovagi nal scanning was necessary due to incomplete visualization of the adnexal and endometrial structures by transabdominal scanning. COMPARISON: None. FINDINGS: Transabdominal scanning: Limited scanning through the kidneys shows no hydronephrosis. No pathologi c free abdominal or pelvic fluid. Endovaginal scanning: Uterus: Uterus is normal in size at 8.6 x 3.3 x 4.9 cm. The endometrium measures 8 mm in combined t hickness. Ovaries: Right ovary measures 2.6 x 2.0 x 2.6 cm, volume 7.1 cc. Left ovary measures 3.1 x 1.9 x 2.5 cm, volume 7.5 cc IMPRESSION: Unremarkable exam. Reviewed by: Iman Stauffer MD on 05/05/2020 1:55 PM PST Approved by: Iman Stauffer MD on 05/05/2020 1:55 PM PST Station ID: [id number]
== END 2020-05-04 16:17 | disposition home or self-care (01) ==
LOC: DI 16:16
PROVIDERS: ATTEND Nurse Practitioner Obstetrics & Gynecology
DX: N93.9 Abnormal uterine and vaginal bleeding, unspecified (principal)
CPT/HCPCS: 76830; 76856

== ENCOUNTER 2020-07-31 08:00 | Outpatient (CLI) | payer MEDICAID ==
[2020-07-31 12:32] LABS: BASOPHILS % (AUTO) 0.2 %; EOSINOPHILS # (AUTO) 0.2 10^3/uL (0.0-0.7); HGB - HEMOGLOBIN 12.3 g/dL (12.0-16.0); LYMPHOCYTES # (AUTO) 2.7 10^3/uL (1.5-3.5); LYMPHOCYTES % (AUTO) 33.5 %; MEAN CORPUSCULAR HEMOGLOBIN 27.4 pg (27.0-31.0); MEAN CORPUSCULAR HGB CONC 31.5 g/dL (32.0-36.0); MEAN CORPUSCULAR VOLUME 87.1 fL (81.0-99.0); MEAN PLATELET VOLUME 12.5 fL (7.9-10.8); MONOCYTES # (AUTO) 0.4 10^3/uL (0.0-1.0); MONOCYTES % (AUTO) 5.2 %; NEUTROPHILS # (AUTO) 4.7 10^3/uL (1.5-6.6); PLT - PLATELET COUNT 278 10^3/uL (130-450); RED BLOOD COUNT 4.49 10^6/uL (4.20-5.40); RED CELL DISTRIBUTION WIDTH 14.9 % (12.0-15.0)
== END 2020-07-31 23:59 | disposition home or self-care (01) ==
LOC: LAB.WCP 08:00
PROVIDERS: ATTEND Obstetrics & Gynecology
DX: Z01.812 Encounter for preprocedural laboratory examination (principal); N92.0 Excessive and frequent menstruation with regular cycle; N93.9 Abnormal uterine and vaginal bleeding, unspecified; Z12.4 Encounter for screening for malignant neoplasm of cervix; Z20.822 Contact with and (suspected) exposure to COVID-19
CPT/HCPCS: 36415; 85025

== ENCOUNTER 2020-08-03 06:12 | Day surgery (SDC) | payer MEDICAID ==
[2020-08-03] MEDS ORDERED: LACTATED RINGERS 1,000 ML IV ONE ×2 (06:25→09:10)
[2020-08-03] MEDS ORDERED: GABAPENTIN 400 MG CAPSULE ONE (06:28)
[2020-08-03] MEDS ORDERED: CELECOXIB 100 MG CAPSULE PO ONE (06:28)
[2020-08-03] MEDS ORDERED: ACETAMINOPHEN 1,000 MG/100 ML 100 ML IV ONE (06:29)
[2020-08-03] MEDS ORDERED: MIDAZOLAM 2 MG/2 ML VIAL ONE (07:09)
--- NOTE | 2020-08-03 07:12 | ANESTHESIA ---
Pre-Anesthesia VS, & Labs - Diagnosis menorrhagia, abnormal vaginal bleeding - Procedure Myosure hysteroscopy, D&C, Pap smear, Mirena placement Vital Signs: Temp Pulse Resp BP Pulse Ox 36.6 C 72 18 135/77 H 97 08/03/20 06:44 08/03/20 06:44 08/03/20 06:44 08/03/20 06:44 08/03/20 06:44 Height: 5 ft 4 in Weight (kg): 146 kg Body Mass Index: 55.2 BMI Classification: Morbidly Obese - NPO >8 hours - Is Patient ?: Waiver signed - Lab Results Lab results reviewed: Yes Home Medications and Allergies Home Medications: Ambulatory Orders Albuterol Sulf [Ventolin Hfa Inhaler] 1 - 2 puffs INH Q4HR PRN 07/26/20 Mirtazapine [Remeron] 10 mg PO DAILY 07/26/20 Quetiapine Fumarate [Seroquel] 200 mg PO DAILY 07/26/20 metFORMIN [Glucophage] 500 mg PO DAILY 07/26/20 Venlafaxine [Effexor] 225 mg PO DAILY 04/15/18 Albuterol Sulf [Ventolin Hfa Inhaler] 1 - 2 puffs INH Q4HR PRN 07/26/20 Mirtazapine [Remeron] 10 mg PO DAILY 07/26/20 Quetiapine Fumarate [Seroquel] 200 mg PO DAILY 07/26/20 metFORMIN [Glucophage] 500 mg PO DAILY 07/26/20 Allergies/Adverse Reactions: Allergies Allergy/AdvReac Type Severity Reaction Status Date / Time prazosin [From Minipress] AdvReac Dizziness Verified 05/01/20 12:58 Anes History & Medical History - Anesthetic History Anesthesia Complications: reports: No previous complications Family history of Anesthesia Complications: Denies Family history of Malignant Hyperthermia: Denies - Medical History Cardiovascular: reports: None Pulmonary: reports: Asthma Gastrointestinal: reports: None Urinary: reports: None Musculoskeletal: reports: None Endocrine/Autoimmune: reports: None Skin: reports: Eczema Smoking Status: Never smoker - Surgical History Eyes Ears Nose Throat (EENT): Tonsil/Adenoidectomy Exam General: Alert, Oriented x3, Cooperative, No acute distress Dental: WNL Mouth Openin Fingerbreadth Neck Mobility: Normal Mallampati classification: II Respiratory: Lungs clear, Normal breath sounds, No respiratory distress, No accessory muscle use Cardiovascular: Regular rate, Normal S1, Normal S2, No murmurs Plan Anesthesia Type: General Consent for Procedure(s) Verified and Reviewed: Yes Code Status: Attempt Resuscitation ASA classification: 3-Severe systemic disease Is this case an emergency?: No
[2020-08-03] MEDS ORDERED: ATROPINE ABBOJECT 1 MG/10 ML SYRINGE IVP PRN (07:14)
[2020-08-03] MEDS ORDERED: HYDROmorphone 0.5 MG/0.5 ML SYRINGE IVP PRN (07:14)
[2020-08-03] MEDS ORDERED: ePHEDrine 50 MG/ML VIAL IVP PRN (07:14)
[2020-08-03] MEDS ORDERED: ONDANSETRON 4 MG/2 ML VIAL IVP PRN (07:14)
[2020-08-03] MEDS ORDERED: METOCLOPRAMIDE 10 MG/2 ML VIAL IVP PRN (07:14)
[2020-08-03] MEDS ORDERED: fentaNYL 100 MCG/2 ML VIAL IVP PRN (07:14)
[2020-08-03] MEDS ORDERED: NALOXONE 0.4 MG/ML VIAL IVP PRN (07:14)
[2020-08-03] MEDS ORDERED: MORPHINE 2 MG/ML CARPUJECT IVP PRN (07:14)
[2020-08-03] MEDS ORDERED: DEXAMETHASONE 4 MG/ML VIAL ONE (07:18)
[2020-08-03] MEDS ORDERED: ONDANSETRON 4 MG/2 ML VIAL ONE (07:18)
[2020-08-03] MEDS ORDERED: LIDOCAINE-MPF 2% 5 ML VIAL ONE (07:18)
[2020-08-03] MEDS ORDERED: PROPOFOL 200 MG/20 ML VIAL IVP ONE (07:18)
[2020-08-03] MEDS ORDERED: fentaNYL 100 MCG/2 ML VIAL ONE (07:19)
[2020-08-03] MEDS ORDERED: BUPIVACAINE 0.25% PF 10 ML VIAL ONE (07:32)
[2020-08-03] MEDS ORDERED: LIDOCAINE 2%-EPI 1:100000 20 ML MDV ONE (07:32)
[2020-08-03] MEDS ORDERED: LIDOCAINE 1% 50 ML MDV ONE (07:32)
[2020-08-03] MEDS ORDERED: SILVER NITRATE APPLICATOR TOP ONE (07:32)
[2020-08-03] MEDS ORDERED: LACTATED RINGERS 1,000 ML IV SCH (08:00)
[2020-08-03] MEDS ORDERED: LEVONORGESTREL 20 MCG/24H IUD IY ONE ×2 (08:06→09:19)
[2020-08-03] MEDS ORDERED: LIDOCAINE 2%-EPI 1:100000 20 ML MDV SUBQ ONE ×2 (08:43)
[2020-08-03] MEDS ORDERED: BUPIVACAINE 0.25% PF 10 ML VIAL SUBQ ONE ×2 (08:43)
[2020-08-03] MEDS ORDERED: oxyCODONE 5 MG TABLET PO PRN (09:36)
--- NOTE | 2020-08-03 09:41 | OPERATIVE REPORT ---
Operative Report - General Procedure Date: 08/03/20 Planned Procedure: Hysteroscopy D&C, Mirena IUD placement, and pap smear Pre-Op Diagnosis: Dysfunctional uterine bleeding, needs for cervical cancer screening Procedure Performed: Pap smear, exam under anesthesia, hysteroscopy D&C, Mirena IUD placement Post Op Diagnosis: Same - Procedure Note Primary Surgeon: Frandy Navarro MD Anesthesia Provider: Jade Yates CRNA Anesthesia Technique: General LMA Pathology: Uterine contents Pap smear, sent via clinic IV Fluids (mL): 700 Estimated Blood Loss (mL): 5 Urine Output (mL): 0 (voided prior to procedure) Indications: Patient is a 30 yo female with long standing dysfunctional uterine bleeding in the setting of PCOS. Failing medical management. BMI>50 with indication for endometrial sampling. Due for cervical cancer screening with pap smear. Also desires Mirena IUD placement to control bleeding and for contraception Findings: Normal appearing uterine cavity with thick, polypoid endometrium. Bilateral tubal ostia noted. Complications: None - Other Other Information/Narrative: Risks benefits and alternatives to the procedure were reviewed. Consent was again confirmed. Patient was taken to the operating room where she underwent general anesthesia. She was positioned in dorsolithotomy position with legs resting in yellowfin stirrups. Initial exam under anesthesia was performed and pap smear was collected prior to surgical prep. She was prepped and draped in the usual sterile fashion. Preoperative antibiotics were not indicated. Preoperative checklist was performed. Exam under anesthesia was performed. Speculum was placed in the vagina and the cervix was visualized. Single-tooth tenaculum was placed at the anterior cervical lip. Paracervical block was administered using a total of 20 cc of 2% lidocaine with epinephrine mixed with bupivicaine 0.25% was injected at the 4:00 and 8:00 positions lateral to the portio of the cervix. The cervical os was serially dilated with Hegar dilators to accommodate the caliber of the diagnostic hysteroscope. Uterus sounded to 9 cm. The hysteroscope was inserted and findings were noted as above. The hysteroscopic morcellator was inserted through the operative port. The D&C was performed with the morcellator under direct visualization. Uterine cavity was smooth at close of the procedure. Hysteroscope was removed. Mirena IUD was placed according to package instructions. IUD strings were trimmed to 3 cm. All instruments were removed from the uterus. Tenaculum was removed. Tenaculum sites were noted to be hemostatic. All instruments were removed from the vagina. Procedure was well- tolerated without complication. Fluid deficit: 515 cc Mirena IUD Lot# [id number]
[2020-08-03 09:44] VITALS: BP 129/75
[2020-08-03] MEDS ORDERED: ONDANSETRON ODT 4 MG TABLET ONE (10:14)
--- NOTE | 2020-08-03 10:14 | ANESTHESIA POST OP EVALUATION ---
Anesthesia Post Eval - Post Anesthesia Eval Vitals: Last Vital Signs Temp 37 C 08/03/20 09:42 Pulse 81 08/03/20 09:42 Resp 11 L 08/03/20 09:42 BP 129/75 08/03/20 09:42 Pulse Ox 95 08/03/20 09:42 CV Function Including HR & BP: positive: Stable Pain Control: positive: Satisfactory Nausea & Vomiting: positive: Negative Mental Status: positive: Baseline Respiratory Status: Airway Patent Hydration Status: Satisfactory Anesthesia Complications: positive: None
== END 2020-08-03 06:13 | disposition home or self-care (01) ==
LOC: SDS 06:12
PROVIDERS: ATTEND Obstetrics & Gynecology
PROC: 0UH97HZ Insertion of Contraceptive Device into Uterus, Via Natural or Artificial Opening (ICD-10-PCS; 2020-08-03)
PROC: 0UB98ZZ Excision of Uterus, Via Natural or Artificial Opening Endoscopic (ICD-10-PCS; principal; 2020-08-03 07:30)
PROC: 0UDB8ZZ Extraction of Endometrium, Via Natural or Artificial Opening Endoscopic (ICD-10-PCS; 2020-08-03 07:30)
DX: N93.8 Other specified abnormal uterine and vaginal bleeding (principal); N92.0 Excessive and frequent menstruation with regular cycle; N84.0 Polyp of corpus uteri; Z12.4 Encounter for screening for malignant neoplasm of cervix; E66.01 Morbid (severe) obesity due to excess calories; Z68.43 Body mass index [BMI] 50.0-59.9, adult; J45.909 Unspecified asthma, uncomplicated
CPT/HCPCS: 58300; 58558; A9270; J0131; J7120; J7298; Q0162

== ENCOUNTER 2020-08-15 08:00 | Outpatient (CLI) | payer MEDICAID ==
[2020-08-15 17:56] LABS: BILIRUBIN,URINE NEGATIVE (NEGATIVE); GLUCOSE, URINE (UA) NEGATIVE (NEGATIVE); KETONES,URINE (UA) NEGATIVE (NEGATIVE); LEUKOCYTE ESTERASE, URINE NEGATIVE (NEGATIVE); NITRITE,URINE NEGATIVE (NEGATIVE); OCCULT BLOOD,URINE LARGE (NEGATIVE); PH,URINE 7.5 PH (5.0-7.5); PROTEIN,URINE NEGATIVE (NEGATIVE); UROBILINOGEN,URINE 0.2 (NORMAL) E.U./dL (NORMAL)
[2020-08-15 18:34] LABS: CLARITY,URINE HAZY (CLEAR)
[2020-08-15 18:51] LABS: WBC,URINE 0-3 /HPF (0-5)
[2020-08-15 18:52] LABS: AMORPHOUS SEDIMENT,UR Marked /LPF; BACTERIA,URINE Many /HPF (None Seen); SQUAMOUS EPITHELIAL CELL,UR FEW Squamous (<= Few)
== END 2020-08-15 23:59 | disposition home or self-care (01) ==
LOC: LAB.WCP 08:00
PROVIDERS: ATTEND Obstetrics & Gynecology
DX: R30.0 Dysuria (principal)
CPT/HCPCS: 81001; 87086

== ENCOUNTER 2021-02-21 08:00 | Outpatient (CLI) | payer MEDICAID | END 2021-02-21 23:59 | disposition home or self-care (01) | LOC: LAB.N 08:00 | PROVIDERS: ATTEND Physician Assistant Medical | DX: R05 Cough (principal); Z20.822 Contact with and (suspected) exposure to COVID-19 ==

== ENCOUNTER 2021-04-30 14:25 | Outpatient (CLI) | payer MEDICAID | END 2021-04-30 23:59 | disposition home or self-care (01) | LOC: LAB 14:25 | PROVIDERS: ATTEND Family Medicine | DX: R30.0 Dysuria (principal) | CPT/HCPCS: 87086 ==

== ENCOUNTER 2021-07-11 18:49 | Emergency (ER) | payer MEDICAID ==
[2021-07-11 19:53] LABS: BASOPHILS % (AUTO) 0.3 %; EOSINOPHILS # (AUTO) 0.1 10^3/uL (0.0-0.7); EOSINOPHILS % (AUTO) 1.2 %; HCT - HEMATOCRIT 38.9 % (37.0-47.0); LYMPHOCYTES # (AUTO) 2.1 10^3/uL (1.5-3.5); LYMPHOCYTES % (AUTO) 28.8 %; MEAN CORPUSCULAR HEMOGLOBIN 30.8 pg (27.0-31.0); MEAN CORPUSCULAR HGB CONC 33.4 g/dL (32.0-36.0); MEAN CORPUSCULAR VOLUME 92.2 fL (81.0-99.0); MEAN PLATELET VOLUME 12.4 fL (7.9-10.8); MONOCYTES # (AUTO) 0.4 10^3/uL (0.0-1.0); MONOCYTES % (AUTO) 5.9 %; NEUTROPHILS # (AUTO) 4.7 10^3/uL (1.5-6.6); NEUTROPHILS % (AUTO) 63.5 %; PLT - PLATELET COUNT 257 10^3/uL (130-450); RED BLOOD COUNT 4.22 10^6/uL (4.20-5.40); RED CELL DISTRIBUTION WIDTH 12.8 % (12.0-15.0); WHITE BLOOD COUNT 7.4 x10^3/uL (4.8-10.8)
[2021-07-11 19:59] LABS: INR 1.1 (0.8-1.2); PT - PROTHROMBIN TIME 12.5 secs (9.9-12.6)
[2021-07-11 20:05] LABS: ALBUMIN 4.2 g/dL (3.2-5.5); ALBUMIN/GLOBULIN RATIO 1.2 (1.0-2.2); BILIRUBIN,TOTAL 1.2 mg/dL (0.2-1.0); CALCIUM 9.2 mg/dL (8.5-10.3); CREATININE 0.7 mg/dL (0.4-1.0); POTASSIUM 3.4 mmol/L (3.5-5.0); TOTAL PROTEIN 7.8 g/dL (6.7-8.2)
[2021-07-11 20:06] LABS: PARTIAL THROMBOPLASTIN TIME 31.7 secs (24.9-33.3)
--- NOTE | 2021-07-11 21:03 | ED Physician Documentation ---
History of Present Illness - Stated complaint Stated Complaint: FEMALE - Chief complaint Chief Complaint: General - History obtained from History obtained from: Patient - History of Present Illness Timing: How many weeks ago (1) Improved by: nothing Worsened by: sitting - Treatment prior to arrival Treatment prior to arrival: c/o 1 week of pain around anus when sitting as well as intermittent BRBPR with BM. pain and amount of bleeding increased since this morning. Notably, the pain is not worse when having a bowel movement Review of Systems Constitutional: denies: Fever GI: reports: Bloody / black stool (BRBPR when having BM). 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 : None HEENT: None Psych: Depression, Anxiety, ADD/ADHD, Post traumatic stress disorder Musculoskeletal: None Derm: Eczema - Past Surgical History Past Surgical History: Yes HEENT: Tonsil/Adenoidectomy - Present Medications Home Medications: Ambulatory Orders Medication Instructions Recorded Confirmed Venlafaxine [Effexor] 225 mg PO DAILY 04/15/18 08/03/20 Albuterol Sulf [Ventolin Hfa 1 - 2 puffs INH Q4HR PRN 07/26/20 08/03/20 Inhaler] Mirtazapine [Remeron] 10 mg PO DAILY 07/26/20 07/26/20 Quetiapine Fumarate [Seroquel] 200 mg PO DAILY 07/26/20 07/26/20 metFORMIN [Glucophage] 500 mg PO DAILY 07/26/20 07/26/20 Pramoxine HCl [Proctofoam] 1 applic TP BID #15 gm 07/11/21 clindamycin HCL [Clindamycin HCl] 300 mg PO TID #20 cap 07/11/21 - Allergies Allergies/Adverse Reactions: Allergies Allergy/AdvReac Type Severity Reaction Status Date / Time prazosin [From Minipress] AdvReac Dizziness Verified 07/11/21 18:58 - Social History Does the pt smoke?: No Smoking Status: Never smoker Does the pt drink ETOH?: Yes Does the pt have substance abuse?: No - Immunizations Immunizations are current?: Yes - POLST Patient has POLST: No PD ED PE NORMAL - Vitals Vital signs reviewed: Yes - General General: Alert and oriented X 3, No acute distress, Well developed/nourished - Abdomen Abdomen: Soft, Non tender PD ED PE EXPANDED - Female Female : Deputy Editor In Chief present, Other (1 (on diagram): 1 cm diameter moderately tender hemorrhoid without fluctuance. no active bleeding, not firm. mild erythema) Female visual: 1 - swelling, tenderness Results - Vitals Vitals: Oxygen O2 Source Room air - Labs Labs: Laboratory Tests 07/11/21 07/11/21 07/11/21 19:47 19:47 19:47 WBC 7.4 RBC 4.22 Hgb 13.0 Hct 38.9 MCV 92.2 MCH 30.8 MCHC 33.4 RDW 12.8 Plt Count 257 MPV 12.4 H Neut # (Auto) 4.7 Lymph # (Auto) 2.1 [place] # (Auto) 0.4 Eos # (Auto) 0.1 Baso # (Auto) 0.0 Absolute Nucleated RBC 0.00 Nucleated RBC % 0.0 PT 12.5 INR 1.1 APTT 31.7 Sodium 139 Potassium 3.4 L Chloride 103 Carbon Dioxide 26 Anion Gap 10.0 BUN 10 Creatinine 0.7 Estimated GFR (MDRD) 99 Glucose 102 H Calcium 9.2 Total Bilirubin 1.2 H AST 37 ALT 41 Alkaline Phosphatase 86 Total Protein 7.8 Albumin 4.2 Globulin 3.6 Albumin/Globulin Ratio 1.2 Lipase 26 PD MEDICAL DECISION MAKING - ED course Complexity details: considered differential, d/w patient ED course: on exam there is a small hemorrhoid with a scab of blood at apex which is likely the source of the bleeding this past week. The hemorrhoid does not appear to be thrombosed (no bluish hue, not firm), but there is mild erythema and it is mild/moderately tender, raising concern that it is inflamed, possibly early infection (lack of fluctuance/firmness makes abscess unlikely). Will give/rx antibiotic (clindamycin) to cover possible infection. Return precautions discussed Departure - Departure Disposition: 01 Home, Self Care Clinical Impression: Bleeding hemorrhoid Condition: Good Instructions: ED Hemorrhoids Follow-Up: HOLLY CARRIZALES, MSN, SURGERY CENTER ADMINISTRATOR [Primary Care Provider] - Within 1 week Prescriptions: clindamycin HCL [Clindamycin HCl] 300 mg PO TID #20 cap Pramoxine HCl [Proctofoam] 1 applic TP BID #15 gm Comments: You have a hemorrhoid that is not actively bleeding but is almost certainly the source of the blood you've noticed. The hemorrhoid appears inflamed and it is quite tender, which raises the concern that it might be infected. For this reason, I have prescribed an antibiotic; you have received the first dose in the ER and a prescription for one week of the antibiotic has been electronically submitted to [facility] pharmacy in [place], along with a prescription for a topical foam that can help with the discomfort of hemorrhoids. Discharge Date/Time: 07/11/21 21:49
[2021-07-11] MEDS: CLINDAMYCIN 150 MG CAPSULE PO STA (21:42)
[2021-07-11 21:50] VITALS: BP 146/93
== END 2021-07-11 21:49 | disposition home or self-care (01) ==
LOC: ED 18:49
DX: K64.4 Residual hemorrhoidal skin tags (principal)
CPT/HCPCS: 36415; 80053; 83690; 85025; 85610; 85730; 99283; A9270

== ENCOUNTER 2021-10-19 08:19 | Outpatient (CLI) | payer MEDICAID ==
[2021-10-19 12:18] LABS: BASOPHILS % (AUTO) 0.3 %; EOSINOPHILS # (AUTO) 0.1 10^3/uL (0.0-0.7); EOSINOPHILS % (AUTO) 2.1 %; HGB - HEMOGLOBIN 14.1 g/dL (12.0-16.0); LYMPHOCYTES % (AUTO) 34.3 %; MEAN CORPUSCULAR HEMOGLOBIN 31.1 pg (27.0-31.0); MEAN CORPUSCULAR HGB CONC 33.6 g/dL (32.0-36.0); MEAN CORPUSCULAR VOLUME 92.7 fL (81.0-99.0); MEAN PLATELET VOLUME 12.4 fL (7.9-10.8); MONOCYTES # (AUTO) 0.4 10^3/uL (0.0-1.0); MONOCYTES % (AUTO) 6.7 %; NEUTROPHILS # (AUTO) 3.3 10^3/uL (1.5-6.6); NEUTROPHILS % (AUTO) 56.4 %; PLT - PLATELET COUNT 267 10^3/uL (130-450); RED BLOOD COUNT 4.53 10^6/uL (4.20-5.40); RED CELL DISTRIBUTION WIDTH 12.5 % (12.0-15.0); WHITE BLOOD COUNT 5.8 x10^3/uL (4.8-10.8)
[2021-10-19 12:19] LABS: ESTIMATED AVERAGE GLUCOSE 97 mg/dL (70-100)
[2021-10-19 12:27] LABS: ALBUMIN 4.5 g/dL (3.2-5.5); ALBUMIN/GLOBULIN RATIO 1.1 (1.0-2.2); ALKALINE PHOSPHATASE 87 IU/L (42-121); ALT ALANINE AMINOTRANSFERASE 21 IU/L (10-60); AST ASPARTATE AMINOTRANSFERASE 26 IU/L (10-42); BILIRUBIN,TOTAL 0.8 mg/dL (0.2-1.0); BUN - BLOOD UREA NITROGEN 11 mg/dL (6-20); CALCIUM 9.5 mg/dL (8.5-10.3); CARBON DIOXIDE - CO2 29 mmol/L (21-32); CHLORIDE 104 mmol/L (101-111); CHOL/HDL RATIO 5.6 (<4.4); CHOLESTEROL 250 mg/dL; CREATININE 0.7 mg/dL (0.4-1.0); GFR - MDRD 98 (>89); GLUCOSE 101 mg/dL (70-100); HDL CHOLESTEROL 45 mg/dL; LDL CHOLESTEROL,CALCULATED 180 mg/dL; POTASSIUM 3.8 mmol/L (3.5-5.0); SODIUM 143 mmol/L (135-145); THYROID STIMULATING HORMONE 1.48 uIU/mL (0.34-5.60); TOTAL PROTEIN 8.7 g/dL (6.7-8.2); TRIGLYCERIDES 127 mg/dL; VLDL CHOLESTEROL 25 mg/dL
== END 2021-10-19 08:20 | disposition home or self-care (01) ==
LOC: LAB.N 08:19
PROVIDERS: ATTEND Nurse Practitioner
DX: R53.83 Other fatigue (principal); Z13.220 Encounter for screening for lipoid disorders; E66.01 Morbid (severe) obesity due to excess calories
CPT/HCPCS: 36415; 80053; 80061; 83036; 83721; 84443; 85025